=== PATIENT | male | born 2000 | race Two or more races ===

== ENCOUNTER 2021-04-01 21:00 | Emergency (ER) | payer BC ==
[~2021-04-01] VITALS: Ht 177.8 cm; Wt 97.5 kg
[2021-04-01 22:18] VITALS: BP 130/85
[2021-04-01] MEDS ORDERED: PENICILLIN G BENZATHINE 2.4 MMU/4 ML ML IM ONE (22:47)
[2021-04-01] MEDS: PENICILLIN G BENZATHINE 2.4 MMU/4 ML ML IM ONE (22:51)
== END 2021-04-01 23:00 | disposition home or self-care (01) ==
LOC: ER 21:04
DX: R21 Rash and other nonspecific skin eruption (principal); A63.8 Other specified predominantly sexually transmitted diseases
CPT/HCPCS: 36415; 86592; 87491; 87591; 96372; 99283; J0558